=== PATIENT | female | born 1985 | race Caucasian/White ===

== ENCOUNTER 2016-12-29 13:44 | Emergency (ER) | payer OTHER ==
[~2016-12-29] VITALS: Ht 160 cm; Wt 64.5 kg
[2016-12-29 13:46] VITALS: BP 114/78; PULSE 68; RESP 16; O2SAT 97
--- NOTE | 2016-12-29 14:45 | ED.REPORT ---
HPI-Abd Pain F Under 40 Date of Service December 29, 2016 ED Provider: Naveen Recinos MD 31 year old female with a history of BTL and BTL reversal presents to the ER accompanied by her daughter complaining of LLQ pain onset yesterday, worsening over night. Pain is constant and described as cramping in character, exacerbated by movement and by laying flat. Associated symptoms include nausea and constipation. Patient denies any dizziness, diarrhea, vomiting, history of STI/STD, and vaginal spotting/bleeding currently. Her and her have been trying to conceive a child for the past year, and she reports painful intercourse recently. Last menstrual period was December 07, 2016. She menstruates with a regularity of 27-28 days, and describes her typical menstrual periods as normal flow. Patient was seen at urgent care earlier today for similar. Nursing Notes Stated Complaint: LOWER LEFT ABDOMINAL PAIN Chief Complaint: Female Abdominal Pain Nursing Notes Reviewed: Yes Allergies: Coded Allergies: No Known Allergies (Verified , 01/28/06) No Active Prescriptions or Reported Meds General Time Seen by MD: 14:44 Chief Complaint Abdominal pain (LLQ) Hx Obtained From: Patient Arrived By: Walk-in Sudden in Onset?: No Onset Occurred: Yesterday Symptom Duration: Since onset Location: : LLQ Quality: Cramping Radiation: : Does not radiate Severity: Current: Moderate Severity: Maximum: Moderate Associated with: Reports: Constipation, Nausea, Denies: Diarrhea, Vomiting Pertinent Negative: Pt denies other symptoms Exacerbated by: Movement Pertinent Negative: Relieved by nothing Similar Sx Previous: No Past Medical History Past Surgical History BTL BTL reversal Reports: Appendectomy Smoking History Never Smoker Social History Alcohol Use: "Social" Drug Use: Denies drug use 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 Physical Exam Initial Vital Signs Vital Signs (First) Date Time Temp Pulse Resp B/P Pulse Ox O2 Delivery O2 Flow Rate FiO2 12/29/16 13:46 36.7 68 16 114/78 97 Room Air Initial VS: Reviewed Head / Eyes: Atraumatic, Normocephalic Neck: Supple, Non-tender, Full range of motion Extremities: Vascular intact, Neuro intact, No swelling, No tenderness Skin: Warm, Dry, No cyanosis Neurologic: Alert, Oriented, Nonfocal Psychiatric: Mood/affect normal, Behavior normal, Normal thought content General/Constitutional: Awake, Alert, Well developed, Well nourished Respiratory / Chest: Breath sounds NL, Breath sounds = bilat, No respiratory distress, No rales, No rhonchi, No wheezing Cardiovascular: Heart rate NL, Regular rhythm, Heart sounds NL, Peripheral circulation NL Abdomen: Soft, No distention, No palpable mass Tenderness/Guarding/Rebound: Positive: Guarding involuntary, Tender LLQ... ( Moderate) Back: Inspection NL, Non-tender, No CVA tenderness Interpretation & Diagnostics Lab Results Interpretation Result Diagram: 12/29/16 1548 Test 12/29/16 15:48 White Blood Count 7.2th/mm3 (3.8-10.1) Red Blood Count 4.17mil/mm3 (3.90-5.20) Hemoglobin 13.4g/dL (12.0-15.6) Hematocrit 38.6% (35.0-46.0) Mean Corpuscular Volume 92.6fL (81-100) Mean Corpuscular Hemoglobin 32.1pg (27.0-35.0) Mean Corpuscular Hemoglobin Concent 34.7% (32.0-37.0) Red Cell Distribution Width 12.7% (12.3-15.4) Platelet Count 290bil/L (150-400) Neutrophils (%) (Auto) 58.4% (40-74) Lymphocytes (%) (Auto) 32.5% (14-46) Monocytes (%) (Auto) 8.3% (4-12) Eosinophils (%) (Auto) 0.6% (0-5) Basophils (%) (Auto) 0.1% (0-3) HCG Beta Subunit < 0.500mIU/mL Hold Mccormack Top Tube Received (Received) Re-Eval/Medical Decision Source of Hx: Old records Re-Evaluation/Progress #1: Time of Eval: 15:25 Re-Evaluation/Progress Note: Completed physical examination and need for a pelvic ultrasound. Re-Evaluation/Progress #2: Time of Eval: 17:03 Re-Evaluation/Progress Note: Discussed imaging results and plan to discharge. Patient is amenable to the plan. Return precautions given. All other questions addressed. Counseled Regarding: Diagnosis, Lab results, Need for follow-up, When/why to return to ED Discharge & Departure Primary Impression: Ruptured ovarian cyst Disposition: Home Discharge Condition All VS Reviewed: Yes Condition: Stable Patient Instructions: Ruptured Ovarian Cyst (DC) Additional Instructions: Your workup today was reassuring. I do not believe that there is any dangerous cause for your symptoms at this time. Your ultrasound revealed a ruptured right ovarian cyst. Take acetaminophen 1000 mg every 6 hours and ibuprofen 800 mg every 8 hours for pain. Heat packs or a heating pad may be beneficial as well. Activity as tolerated. Call your primary care provider to arrange a follow-up appointment in 1-2 days. Return to the ER if you develop new or worsening pain, lightheadedness, abnormal vaginal bleeding or discharge, or any other concerning symptoms. Referrals: Sharif Manzano DO (PCP) [facility] Attestation Portions of this note were transcribed by Efrain Solares. I, Dr. Recinos, personally performed the history, physical exam and medical decision-making; I reviewed and confirmed the accuracy of the information in the transcribed note. Signed by: Morgan Acosta, 12/29/2016 at 17:06 copies to: Sharif Manzano Kirk H MD December 29, 2016 14:45 EFRAIN SOLARES December 29, 2016 15:15 EFRAIN SOLARES December 29, 2016 15:15
[2016-12-29 16:06] LABS: BASOPHILS % (AUTO) 0.1 % (0-3); EOSINOPHILS % (AUTO) 0.6 % (0-5); MONOCYTES % (AUTO) 8.3 % (4-12); Mean Corpuscular Hemoglobin 32.1 pg (27.0-35.0); Mean Corpuscular Volume 92.6 fL (81-100); NEUTROPHILS % (AUTO) 58.4 % (40-74); Platelet Count 290 bil/L (150-400)
[2016-12-29 17:33] VITALS: BP 112/72; PULSE 68; RESP 16; O2SAT 97
--- NOTE | 2016-12-29 17:38 | DRSVH ---
PROCEDURE: US PELVIC SONOGRAM + TRANSVAGINAL SONOGRAM INDICATIONS: Pelvic Pain TECHNIQUE: Real-time scanning was performed of the pelvic organs, with image documentation. Additional endovagi nal scanning was necessary due to incomplete visualization of the adnexal and endometrial structures by transabdominal scanning. COMPARISON: None. FINDINGS: Transabdominal scanning: Limited scanning through the kidneys shows no hydronephrosis. Small amount of free fluid within the pelvis, within physiological limits in a menstruating female. Endovaginal scanning: Uterus: Uterus is normal in size at 8.0 x 5.4 x 4.6 cm. The endometrium measures 14 mm in combined thickness. Ovaries: Right ovarian hemorrhagic cyst measuring 27 mm. 24 mm left paraovarian cyst is present. IMPRESSION: 1. No acute process. Small amount of physiologic free fluid. Dictated by: Marjorie Banks M.D. on 12/29/2016 at 17:34 Approved by: Marjorie Banks M.D. on 12/29/2016 at 17:36
== END 2016-12-29 17:34 | disposition home or self-care (01) ==
LOC: SED 13:44
DX: N83.201 Unspecified ovarian cyst, right side (principal)
CPT/HCPCS: 36415; 76830; 76856; 81002; 81025; 84702; 85025; 99284; G0463